=== PATIENT | male | born 1975 | race Hispanic/Latino ===

== ENCOUNTER 2018-01-10 11:35 | Day surgery (SDC) | payer OTHER ==
[~2018-01-10 11:35] MED LIST: AMLODIPINE10 MG PO; ATORVASTATIN CA40 MG PO; COZAAR100 MG PO; FAMOTIDINE PO; HYDROCHLOROT12.5 MG PO; HYDROCO/APAP1 T13 PO; LABETALOL100 MG PO; METFORMIN500 M2 PO; NEURONTIN300 MG PO; PAXIL40 MG PO; PHENTERMINE H37.5 M1 PO; SG ASA LOW81 M1 PO
[2018-01-10 14:20] VITALS: BP 129/75
== END 2018-01-10 14:58 | disposition home or self-care (01) | DRG 379 ==
LOC: ENDO 11:35 → ORM 12:45 → ENDO 14:00
PROVIDERS: ATTEND Internal Medicine Gastroenterology
PROC: 0DBN8ZX Excision of Sigmoid Colon, Via Natural or Artificial Opening Endoscopic, Diagnostic (ICD-10-PCS; principal; 2018-01-10)
DX: K57.31 Diverticulosis of large intestine without perforation or abscess with bleeding (principal); D12.5 Benign neoplasm of sigmoid colon; K64.4 Residual hemorrhoidal skin tags; K64.8 Other hemorrhoids; K21.9 Gastro-esophageal reflux disease without esophagitis; I10 Essential (primary) hypertension; E11.9 Type 2 diabetes mellitus without complications; E78.00 Pure hypercholesterolemia, unspecified; F41.9 Anxiety disorder, unspecified; Z80.0 Family history of malignant neoplasm of digestive organs; Z79.899 Other long term (current) drug therapy